=== PATIENT | female | born 1980 | race Caucasian/White ===

== ENCOUNTER 2019-07-18 23:12 | Emergency (ER) | payer OTHER ==
[~2019-07-18] VITALS: Ht 160 cm; Wt 97.5 kg
[~2019-07-18 23:12] MED LIST: IBUP-2213 PO
[2019-07-18 23:15] VITALS: BP 112/68
[2019-07-18] MEDS ORDERED: KETOROLAC 60 MG/2 ML VIAL IM ONE (23:50)
[2019-07-19 00:12] LABS: BASOPHILS # (AUTO) 0.1 K/uL (0.00-0.22); BASOPHILS % (AUTO) 0.8 % (0.0-2.0); EOSINOPHILS # (AUTO) 0.4 K/uL (0-0.4); EOSINOPHILS % (AUTO) 3.9 % (0.0-4.0); HEMATOCRIT 40.5 % (36-48); HEMOGLOBIN 13.7 g/dL (12.0-16.0); LYMPHOCYTES # (AUTO) 3.7 K/uL (2.5-16.5); LYMPHOCYTES % (AUTO) 36.2 % (20.5-51.1); MEAN CORPUSCULAR HEMOGLOBIN 31 pg (27-31); MEAN CORPUSCULAR HGB CONC 34 g/dL (33-37); MEAN CORPUSCULAR VOLUME 92.6 fL (80-94); MONOCYTES # (AUTO) 0.8 K/uL (0.8-1.0); MONOCYTES % (AUTO) 7.7 % (1.7-9.3); NEUTROPHILS # (AUTO) 5.2 K/uL (1.8-7.7); NEUTROPHILS % (AUTO) 51.4 % (42.2-75.2); PLATELET COUNT (AUTO) 335 K/uL (140-450); RED BLOOD CELL COUNT(AUTO) 4.37 MIL/uL (4.20-5.40); RED CELL DISTRIBUTION WIDTH 13.5 % (11.6-13.7); WHITE BLOOD COUNT (AUTO) 10.1 K/uL (4.8-10.8)
[2019-07-19 00:24] LABS: ANION GAP 8.7 (8-16); CARBON DIOXIDE 30.3 mmol/L (21-32); CREATININE 0.8 mg/dL (0.6-1.3)
[2019-07-19 00:32] LABS: ALBUMIN 3.5 g/dL (3.4-5.0); TOTAL BILIRUBIN 0.4 mg/dL (0.0-1.0)
[2019-07-19 03:25] VITALS: BP 100/67
== END 2019-07-19 03:25 | disposition home or self-care (01) ==
LOC: MED 23:12
DX: K44.9 Diaphragmatic hernia without obstruction or gangrene (principal); K80.20 Calculus of gallbladder without cholecystitis without obstruction; Z79.1 Long term (current) use of non-steroidal anti-inflammatories (NSAID)
CPT/HCPCS: 36415; 74176; 80053; 81002; 81025; 83690; 85025; 96372; 99284; J1885

== ENCOUNTER 2024-05-18 09:54 | Emergency (ER) | payer OTHER ==
[~2024-05-18] VITALS: Ht 157.5 cm; Wt 101.3 kg
[~2024-05-18 09:54] MED LIST changes: +CIPR500T4 PO
[2024-05-18 10:05] VITALS: BP 132/85; PULSE 82; RESP 17; TEMP 97.7; O2SAT 98
[2024-05-18] MEDS: MORPHINE SULFATE 4 MG/ML SYR IM ONE (10:38)
[2024-05-18] MEDS ORDERED: ACET-8905 PO (10:57)
[2024-05-18 11:05] VITALS: BP 132/85; PULSE 82; RESP 17; TEMP 97.7; O2SAT 98
== END 2024-05-18 11:05 | disposition home or self-care (01) ==
LOC: MED 09:54
DX: M79.671 Pain in right foot (principal); Z79.899 Other long term (current) drug therapy
CPT/HCPCS: 81025; 96372; 99283; J2270